=== PATIENT | male | born 1935 | race African-American/Black ===

== ENCOUNTER 2017-03-21 14:01 | Emergency (ER) | payer MEDICARE, OTHER ==
[~2017-03-21] VITALS: Ht 188 cm; Wt 75.3 kg
[~2017-03-21 14:01] MED LIST: ALFUZOSIN HCL10 MG PO; CYMBALTA20 MG ORAL; DIOVAN80 MG ORAL; FISH OIL300 M1 PO; FLOMAX0.4 MG ORAL; KOMBIGLYZE XR1 EACH PO; MACROBID100 MG ORAL; NAPROSYN500 M1 ORAL; NORCO 5-325 TA1 EACH ORAL; TRAZODONE HCL50 MG PO; TYLENOL325 MG ORAL; VYTORIN 10-201 EACH ORAL
--- NOTE | 2017-03-21 14:40 | Emergency Room Report ---
History of Present Illness General Chief Complaint: General Complaint Source: Patient Present Illness HPI 81-year-old male, history of kidney stones, history of CABG, p/w abdominal pain 4 days. Patient states pain started gradually, localized to right lower quadrant, non radiating, aching in nature, intermittent. No relieving or exacerbating factors. Severity is mild/moderate. States that he got his blood work done 2 weeks ago which was normal. Denies nvd. Denies fever, chills. No hx of abdominal surgeries. No hx of endoscopies/colonoscopies. Patient states that this does not feel similar to his kidney stone pain in the past Allergies: Coded Allergies: DIAZEPAM (Unverified Adverse Reaction, Severe, hx of mysathenia gravis, 10/08/12) Patient History Past Medical History: see triage record Past Surgical History: none Pertinent Family History: none Reviewed Nursing Documentation: PMH: Agreed, PSxH: Agreed Nursing Documentation-PMH Past Medical History: No History, Except For Hx Cardiac Problems: Yes - CAD Hx Hypertension: Yes Hx Pacemaker: No Hx Asthma: No Hx COPD: No Hx Diabetes: Yes Hx Cancer: Yes - prostate Hx Gastrointestinal Problems: No Hx Dialysis: No History Of Psychiatric Problem: No Hx Neurological Problems: No Hx Cerebrovascular Accident: No Hx Seizures: No Review of Systems All Other Systems: negative except mentioned in HPI Physical Exam Vital Signs Date Time Temp Pulse Resp B/P (MAP) Pulse Ox O2 Delivery O2 Flow Rate FiO2 03/21/17 14:21 97.2 77 16 152/83 97 Room Air Sp02 EP Interpretation: reviewed, normal General Appearance: alert, GCS 15, non-toxic, mild distress Head: normocephalic, atraumatic Eyes: bilateral eye normal inspection, bilateral eye PERRL, bilateral eye EOMI ENT: normal ENT inspection, normal pharynx, normal voice, moist mucus membranes Neck: normal inspection, full range of motion, supple Respiratory: normal inspection, lungs clear, normal breath sounds, no respiratory distress, no retraction, no wheezing, speaking full sentences, chest symmetrical Cardiovascular #1: normal inspection, regular rate, rhythm, normal capillary refill Cardiovascular #2: 2+ radial (R), 2+ radial (L) Gastrointestinal: other - Mild right lower quadrant tenderness, no guarding no rebound, abdomen is soft, normal bowel sounds Genitourinary: no CVA tenderness Musculoskeletal: normal inspection, back normal, normal range of motion, non- tender Neurologic: normal inspection, alert, oriented x3, responsive, motor strength/ tone normal, sensory intact, normal gait, speech normal Psychiatric: normal inspection, judgement/insight normal, memory normal Skin: normal inspection, normal color, no rash, warm/dry, well hydrated, normal turgor Medical Decision Making Diagnostic Impression: Primary Impression: Prostatitis ER Course 81-year-old female with abdominal pain Differential Diagnosis: Gastritis, gastroenteritis, cholecystitis, appendicitis, diverticulitis, SBO, mesenteric ischemia, cardiac, UTI/pyelo Plan: Basic labs, ua, ekg pain control, IVF CT abdopelvis ER course: Patient has remained HD stable during ED stay. Pain improved. DX with possible prostatitis vs. UTI on CT. ua clean I told pt need to do rectal exam, but refusing at this time and states he can see his urologist this week Disposition: FU with urology in 1 week. dc with cipro Please note that this Emergency Department Report was dictated using [employer] Propertiesstatistician technology software, occasionally this can lead to erroneous entry secondary to interpretation by the dictation equipment EKG Diagnostic Results EP Interpretation: Yes Rate: normal Rhythm: NSR ST Segments: Right bundle branch block, PVCs, ASA given to patient: No Laboratory Tests Test 03/21/17 15:00 White Blood Count 5.4 K/UL (4.8-10.8) Red Blood Count 4.45 M/UL (4.70-6.10) L Hemoglobin 12.7 G/DL (14.2-18.0) L Hematocrit 39.1 % (42.0-52.0) L Mean Corpuscular Volume 88 FL (80-99) Mean Corpuscular Hemoglobin 28.5 PG (27.0-31.0) Mean Corpuscular Hemoglobin Concent 32.5 G/DL (32.0-36.0) Red Cell Distribution Width 12.0 % (11.6-14.8) Platelet Count 205 K/UL (150-450) Mean Platelet Volume 7.6 FL (6.5-10.1) Neutrophils (%) (Auto) 54.4 % (45.0-75.0) Lymphocytes (%) (Auto) 29.0 % (20.0-45.0) Monocytes (%) (Auto) 12.4 % (1.0-10.0) H Eosinophils (%) (Auto) 2.2 % (0.0-3.0) Basophils (%) (Auto) 1.9 % (0.0-2.0) Urine Color Pale yellow Urine Appearance Clear Urine pH 5 (4.5-8.0) Urine Specific [place] 1.010 (1.005-1.035) Urine Protein Negative (NEGATIVE) Urine Glucose (UA) 4+ (NEGATIVE) H Urine Ketones Negative (NEGATIVE) Urine Occult Blood Negative (NEGATIVE) Urine Nitrite Negative (NEGATIVE) Urine Bilirubin Negative (NEGATIVE) Urine Urobilinogen Normal MG/DL (0.0-1.0) Urine Leukocyte Esterase Negative (NEGATIVE) Sodium Level 142 MMOL/L (136-145) Potassium Level 4.0 MMOL/L (3.5-5.1) Chloride Level 107 MMOL/L (98-107) Carbon Dioxide Level 26 MMOL/L (21-32) Anion Gap 9 mmol/L (5-15) Blood Urea Nitrogen 16 mg/dL (7-18) Creatinine 1.3 MG/DL (0.55-1.30) Estimate Glomerular Filtration Rate mL/min (>60) Glucose Level 145 MG/DL (74-106) H Calcium Level 9.3 MG/DL (8.5-10.1) Total Bilirubin 0.5 MG/DL (0.2-1.0) Aspartate Amino Transferase (AST) 17 U/L (15-37) Alanine Aminotransferase (ALT) 22 U/L (12-78) Alkaline Phosphatase 52 U/L (46-116) Troponin I 0.011 ng/mL (0.000-0.056) Total Protein 7.6 G/DL (6.4-8.2) Albumin 4.0 G/DL (3.4-5.0) Globulin 3.6 g/dL Albumin/Globulin Ratio 1.1 (1.0-2.7) Lipase 115 U/L (73-393) Last Vital Signs Date Time Temp Pulse Resp B/P (MAP) Pulse Ox O2 Delivery O2 Flow Rate FiO2 03/21/17 14:21 97.2 77 16 152/83 97 Room Air Disposition: HOME, SELF-CARE Condition: Improved Scripts Ciprofloxacin Hcl* (CIPROFLOXACIN HCL*) 500 Mg Tablet 500 MG ORAL Q12H for 7 Days, #14 TAB 0 Refills Prov: Cameron Clancy M.D. 03/21/17 Cameron Clancy M.D. Mar 21, 2017 14:40
[2017-03-21 15:26] LABS: APPEARANCE,URINE CLEAR; BILIRUBIN, URINE NEGATIVE (NEGATIVE); COLOR,URINE PALE YELLOW; GLUCOSE, URINE (UA) 4+ (NEGATIVE); KETONES,URINE NEGATIVE (NEGATIVE); LEUKOCYTE ESTERASE ,URINE NEGATIVE (NEGATIVE); NITRITE,URINE NEGATIVE (NEGATIVE); PH,URINE 5 (4.5-8.0); PROTEIN,URINE NEGATIVE (NEGATIVE); UROBILINOGEN,URINE NORMAL MG/DL (0.0-1.0)
[2017-03-21 15:39] LABS: BASOPHILS % (AUTO) 1.9 % (0.0-2.0); EOSINOPHILS % (AUTO) 2.2 % (0.0-3.0); HEMATOCRIT 39.1 % (42.0-52.0); HEMOGLOBIN 12.7 G/DL (14.2-18.0); MEAN CORPUSCULAR VOLUME 88 FL (80-99); MONOCYTES % (AUTO) 12.4 % (1.0-10.0); NEUTROPHILS % (AUTO) 54.4 % (45.0-75.0); PLATELET COUNT 205 K/UL (150-450); RED BLOOD COUNT 4.45 M/UL (4.70-6.10); WHITE BLOOD COUNT 5.4 K/UL (4.8-10.8)
[2017-03-21 15:43] LABS: ANION GAP 9 mmol/L (5-15); BLOOD UREA NITROGEN 16 mg/dL (7-18); CALCIUM 9.3 MG/DL (8.5-10.1); CARBON DIOXIDE 26 MMOL/L (21-32); CHLORIDE 107 MMOL/L (98-107); CREATININE 1.3 MG/DL (0.55-1.30); SODIUM 142 MMOL/L (136-145)
[2017-03-21 15:51] LABS: ALANINE AMINOTRANSFERASE 22 U/L (12-78); ALBUMIN/GLOBULIN RATIO 1.1 (1.0-2.7); ALKALINE PHOSPHATASE 52 U/L (46-116); ASPARTATE AMINO TRANSFERASE 17 U/L (15-37); BILIRUBIN,TOTAL 0.5 MG/DL (0.2-1.0)
[2017-03-21 17:37] VITALS: BP 144/83
[2017-03-21] MEDS ORDERED: CIPROFLOXACIN500 M2 ORAL (18:09)
[2017-03-21 18:27] VITALS: BP 144/83
--- NOTE | 2017-03-22 17:15 | Diagnostic Imaging Report ---
Indication: Pain Technique: CT of the abdomen and pelvis utilizing automated exposure control with intravenous contrast. Venous scanning performed. CT dose: Total DLP 542.34 mGycm; CTDI vol 11.15 mGy Comparison: 04/29/2014 Findings: 5 mm right lower lobe lung nodule (series 7 image #2) is stable when compared to the prior exam. There is mild dependent atelectasis noted bilaterally. Heart size within normal limits. There probable coronary arterial calcifications. No pericardial effusion. Patient noted to be status post median sternotomy. Liver, gallbladder, spleen, adrenal glands and pancreas are unremarkable. Kidneys enhance symmetrically. No urinary tract stones or hydronephrosis seen. 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 The prostate is enlarged and heterogeneous. There is questionable mild stranding in the pelvis. There is no evidence of bowel obstruction. No free intraperitoneal fluid or air is identified. The appendix is normal. No appreciable focal or diffuse abnormal bowel wall thickening. No definite perienteric inflammatory change. There is a small fat-containing umbilical hernia. Abdominal aorta is normal in caliber but moderately calcified. There is no bulky abdominal or pelvic lymphadenopathy. No acute osseous abnormality is seen. There are degenerative changes in the spine. Impression: Questionable mild stranding in the pelvis, cannot exclude prostatitis, seminal vesiculitis or cystitis. Correlate clinically. Heterogeneous, enlarged prostate. Left bladder diverticulum. No hydronephrosis. No evidence of appendicitis, small bowel obstruction or perienteric inflammatory change. Additional findings as above. This corresponds with the [facility] preliminary report. The CT scanner at [facility] is accredited by the [employer] and the scans are performed using protocols designed to limit radiation exposure to as low as reasonably achievable to attain images of sufficient resolution adequate for diagnostic evaluation.
--- NOTE | 2017-03-22 18:15 | Cardiology Report ---
APPROVED REPORT EKG Measurement Heart [id number] WI 150P4 [id number] Sinus rhythm with premature supraventricular complexes Right bundle branch block Left anterior fascicular block Bifascicular block Voltage criteria for left ventricular hypertrophy Possible Inferior infarct, age undetermined Abnormal ECG
== END 2017-03-21 18:20 | disposition home or self-care (01) ==
LOC: EMR 14:45
DX: N41.9 Inflammatory disease of prostate, unspecified (principal); I25.10 Atherosclerotic heart disease of native coronary artery without angina pectoris; I10 Essential (primary) hypertension; E11.9 Type 2 diabetes mellitus without complications; Z85.46 Personal history of malignant neoplasm of prostate; N32.3 Diverticulum of bladder
CPT/HCPCS: 36415; 74177; 80053; 81003; 83690; 84484; 85025; 93005; 99284; Q9967

== ENCOUNTER 2017-05-24 15:46 | Emergency (ER) | payer MEDICARE, OTHER ==
[~2017-05-24] VITALS: Ht 188 cm; Wt 75.3 kg
[~2017-05-24 15:46] MED LIST changes: +CIPROFLOXACIN500 M2 ORAL
[2017-05-24 16:33] LABS: APPEARANCE,URINE CLEAR; BILIRUBIN, URINE NEGATIVE (NEGATIVE); COLOR,URINE PALE YELLOW; GLUCOSE, URINE (UA) 4+ (NEGATIVE); KETONES,URINE 1+ (NEGATIVE); LEUKOCYTE ESTERASE ,URINE NEGATIVE (NEGATIVE); NITRITE,URINE NEGATIVE (NEGATIVE); PH,URINE 5 (4.5-8.0); PROTEIN,URINE 1+ (NEGATIVE); UROBILINOGEN,URINE NORMAL MG/DL (0.0-1.0)
[2017-05-24 17:08] VITALS: BP 150/99
--- NOTE | 2017-05-24 17:15 | Diagnostic Imaging Report ---
Indication: Shortness of breath Technique: One view of the chest Comparison: 10/08/2012 Findings: There is some atelectasis at both lung bases. There are calcified granulomata in the right paratracheal and hilar region. The heart size is normal. The aorta is tortuous. There are median sternotomy sutures. Better inspiration currently. No other significant interim change Impression: Bibasilar atelectasis. No acute process otherwise Evidence old granulomatous disease
[2017-05-24 17:32] LABS: BASOPHILS % (AUTO) 1.8 % (0.0-2.0); EOSINOPHILS % (AUTO) 2.1 % (0.0-3.0); HEMATOCRIT 42.8 % (42.0-52.0); HEMOGLOBIN 14.2 G/DL (14.2-18.0); LYMPHOCYTES % (AUTO) 31.9 % (20.0-45.0); MEAN CORPUSCULAR VOLUME 86 FL (80-99); MONOCYTES % (AUTO) 9.1 % (1.0-10.0); NEUTROPHILS % (AUTO) 55.1 % (45.0-75.0); PLATELET COUNT 174 K/UL (150-450); RED BLOOD COUNT 4.99 M/UL (4.70-6.10); WHITE BLOOD COUNT 4.6 K/UL (4.8-10.8)
--- NOTE | 2017-05-24 17:32 | Emergency Room Report ---
History of Present Illness General Chief Complaint: Dizziness Source: Patient Present Illness HPI 81-year-old male presents with 2 weeks of generalized weakness. He feels that he doesn't have enough strength in his legs, that he notices when he walks. He also occasionally feels lightheaded, but hasn't passed out. Currently denies chest pain, shortness of breath, abdominal pain, headache, dizziness, fever chills or urinary complaints. Patient is in the process of moving to [place], has been living there the last 5 -6 months. Patient states he plays golf 3-4 times a week, been out in the [place] or on any [place] recently, or exposure to any [place] animals. He had CABG 13, 14 years ago patient was here in March, 2 months ago, which treated for suspected prostatitis with Cipro. Allergies: Coded Allergies: DIAZEPAM (Unverified Adverse Reaction, Severe, hx of mysathenia gravis, 10/08/12) Patient History Past Medical History: DM Past Surgical History: CABG Pertinent Family History: none Social History: Denies: smoking, alcohol use, drug use Immunizations: UTD Reviewed Nursing Documentation: PMH: Agreed, PSxH: Agreed Nursing Documentation-PMH Hx Cardiac Problems: Yes - CAD Hx Hypertension: Yes Hx Pacemaker: No Hx Asthma: No Hx COPD: No Hx Diabetes: Yes Hx Cancer: Yes - prostate Hx Gastrointestinal Problems: No Hx Dialysis: No Hx Neurological Problems: No Hx Cerebrovascular Accident: No Hx Seizures: No Review of Systems All Other Systems: negative except mentioned in HPI Physical Exam Vital Signs Date Time Temp Pulse Resp B/P (MAP) Pulse Ox O2 Delivery O2 Flow Rate FiO2 05/24/17 16:03 97.6 78 20 150/99 99 Room Air 97.5 Sp02 EP Interpretation: reviewed, normal General Appearance: normal inspection, well appearing, no apparent distress, alert, GCS 15, non-toxic, other - Very well-appearing, interactive, nice gentleman Head: normocephalic, atraumatic Eyes: bilateral eye PERRL, bilateral eye EOMI ENT: normal ENT inspection, hearing grossly normal, normal pharynx, no angioedema, normal voice, TMs + canals normal, uvula midline, moist mucus membranes Neck: normal inspection, full range of motion, supple, thyroid normal, no meningismus, no bony tend Respiratory: normal inspection, lungs clear, normal breath sounds, no rhonchi, no respiratory distress, no retraction, no accessory muscle use, no wheezing, speaking full sentences Cardiovascular #1: regular rate, rhythm, no edema, no JVD, normal capillary refill Gastrointestinal: normal inspection, normal bowel sounds, non tender, soft, no mass, no peritonitis, non-distended, no guarding, no hernia, no pulsatile mass Genitourinary: no CVA tenderness Musculoskeletal: normal inspection, back normal, normal range of motion, no calf tenderness, pelvis stable, Aishwarya's Sign negative Neurologic: normal inspection, alert, oriented x3, responsive, aerospace project engineer III-XII nml as tested, motor strength/tone normal, cerebellar normal, normal gait, speech normal Psychiatric: normal inspection, judgement/insight normal, mood/affect normal, no suicidal/homicidal ideation, no delusions Skin: normal inspection, normal color, no rash Lymphatic: normal inspection, no adenopathy Medical Decision Making Diagnostic Impression: Primary Impression: Weakness Additional Impression: Cystitis ER Course ECG shows bifascicular block, pH No ST elevation or depression no other acute ischemia CT head: No acute abnormalities CT abdomen and pelvis was done because of microscopic hematuria, there is evidence of cystitis on CT, no other abnormalities Patient was given IV dose of Rocephin and prescription for Keflex for possible bladder cystitis He was given copy of labs, CTs to follow-up with PMD No other acute abnormality on imaging or labs 6. symptoms ER course: Patient has remained stable during ED stay. Disposition: Patient is to be discharged to home. Prescriptions given are keflex Patient is instructed to follow up with their primary care doctor within 5 days. Strict return precautions discussed with patient such as fever, chills, worsening/severe pain, nausea, vomiting, which may indicate severe illness. Patient verbalizes understanding and agrees with plan. Please note that this Emergency Department Report was dictated using [employer] supervisor technology software, occasionally this can lead to erroneous entry secondary to interpretation by the dictation equipment EKG Diagnostic Results Rate: normal Rhythm: other - bifascilular block ST Segments: no acute changes ASA given to the pt in ED: No Rhythm Strip Diag. Results EP Interpretation: yes Rate: 75 Rhythm: NSR, no PVC's, no ectopy Last Vital Signs Date Time Temp Pulse Resp B/P (MAP) Pulse Ox O2 Delivery O2 Flow Rate FiO2 05/24/17 17:08 97.5 87 20 150/99 99 Room Air 97.5 Status: improved Disposition: HOME, SELF-CARE Scripts Cephalexin* (KEFLEX*) 500 Mg Capsule 500 MG ORAL Q6H for 7 Days, #28 CAP 0 Refills Prov: ELLY BEAL M.D. 05/24/17 ELLY BEAL M.D. May 24, 2017 17:32
[2017-05-24 18:00] LABS: ANION GAP 12 mmol/L (5-15); BLOOD UREA NITROGEN 18 mg/dL (7-18); CALCIUM 9.4 MG/DL (8.5-10.1); CARBON DIOXIDE 26 MMOL/L (21-32); CHLORIDE 106 MMOL/L (98-107); CREATININE 1.2 MG/DL (0.55-1.30); SODIUM 144 MMOL/L (136-145)
[2017-05-24 18:13] LABS: ALANINE AMINOTRANSFERASE 16 U/L (12-78); ALBUMIN 4.3 G/DL (3.4-5.0); ALBUMIN/GLOBULIN RATIO 1.3 (1.0-2.7); ALKALINE PHOSPHATASE 52 U/L (46-116); ASPARTATE AMINO TRANSFERASE 19 U/L (15-37); BILIRUBIN,TOTAL 1.1 MG/DL (0.2-1.0); CKMB 1.3 NG/ML (0.0-3.6); CREATINE KINASE 204 U/L (26-308)
[2017-05-24 18:14] LABS: BILIRUBIN,DIRECT 0.2 MG/DL (0.0-0.3)
[2017-05-24 19:30] VITALS: BP 162/91
[2017-05-24] MEDS ORDERED: cefTRIAXone 1 GM in NS 55 ML IVPB ONE (19:45)
[2017-05-24] MEDS ORDERED: KEFLEX500 MG ORAL (19:51)
[2017-05-24 20:45] VITALS: BP 139/66
--- NOTE | 2017-05-25 08:51 | Diagnostic Imaging Report ---
Indication: Pain Technique: spiral acquisitions obtained through the brain. Angled axial and coronal 5 x 5 mm slices were reconstructed. No IV contrast utilized. Radiation dose was minimized using automated exposure control Total dose length product 1495.73 mGycm. CTDIvol(s) 70.38 mGy Comparison: 10/08/2012 FINDINGS: No acute hemorrhage or edema. No mass effect or midline shift. There is age-related enlargement of the ventricles and extra axial CSF spaces. There is periventricular deep white matter ischemic change. Normal lemons-white differentiation. When compared to the prior exam, volume loss in the frontal regions has progressed. 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 Visualized orbits are unremarkable. Visualized sinuses are unremarkable. Intact calvarium. IMPRESSION: Chronic and age-related changes. Negative for acute intracranial bleed or mass effect This agrees with the preliminary interpretation provided overnight by [facility] teleradiology service. The CT scanner at [facility] is accredited by the [employer] and the scans are performed using protocols designed to limit radiation exposure to as low as reasonably achievable to attain images of sufficient resolution adequate for diagnostic evaluation
--- NOTE | 2017-05-25 09:05 | Diagnostic Imaging Report ---
Clinical Indication: Abdominal pain Technique: No oral contrast utilized, per emergency room physician request IV administration nonionic contrast. Venous phase spiral acquisition obtained through the abdomen and pelvis. Multiplanar reconstructions were generated. Total dose length product 536 mGycm. CTDIvol(s) 10 mGy. Dose reduction achieved using automated exposure control Comparison: 03/21/2017 Findings: Normal appendix. No evidence of diverticulosis or diverticulitis. No small bowel distention. No free or loculated intraperitoneal air or fluid is evident. There is slight swirling of the mesenteric root in the lower midline which is not evident previously, but there is no evidence of associated bowel abnormality so this is probably transient. The distal esophagus, stomach, duodenum are unremarkable. There is a small fat-containing umbilical hernia. The liver, gallbladder, bile ducts, spleen, adrenals are unremarkable. The right kidney demonstrates a 1 cm diameter interpolar region cyst. Both kidneys demonstrate subcentimeter low-attenuation lesions which are too small to characterize. No retroperitoneal or mesenteric mass or adenopathy. No pelvic mass or adenopathy. There is a small left-sided bladder diverticulum again demonstrated. Prostate is mildly prominent. Previously questioned pelvic fat stranding is again demonstrated, very similar to previous. 3 mm right basilar lung nodule is again demonstrated, was also visible on prior exam in 2015 and is unchanged degenerative changes of the lumbar spine are again demonstrated. Impression: Minimal fat stranding in the pelvis, nonspecific, could indicate cystitis, prostatitis, or inflammation of the seminal vesicles. This is also reported on prior CT of 03/21/2017, so could also be chronic and baseline for this patient. Correlation with clinical findings is recommended Right renal cyst. Subcentimeter low-attenuation renal lesions, too small to characterize, no further follow-up necessary. Stable right basilar lung nodule, since 2014. No further follow-up necessary Degenerative spondylosis This agrees with the preliminary interpretation provided overnight by [email or web address] teleradiology service. The CT scanner at [facility] is accredited by the [employer] and the scans are performed using protocols designed to limit radiation exposure to as low as reasonably achievable to attain images of sufficient resolution adequate for diagnostic evaluation.
== END 2017-05-24 20:50 | disposition home or self-care (01) ==
LOC: EMR 16:50
DX: N30.90 Cystitis, unspecified without hematuria (principal); R53.1 Weakness; E11.9 Type 2 diabetes mellitus without complications; I10 Essential (primary) hypertension; Z85.46 Personal history of malignant neoplasm of prostate; I25.810 Atherosclerosis of coronary artery bypass graft(s) without angina pectoris; Z88.8 Allergy status to other drugs, medicaments and biological substances; I45.2 Bifascicular block
CPT/HCPCS: 36415; 70450; 71045; 74177; 80053; 81003; 82248; 82550; 82553; 82962; 84484; 85025; 86710; 93005; 96361; 96374; 99284; J0696; Q9967